=== PATIENT | male | born 1965 | race Caucasian/White ===

== ENCOUNTER 2023-05-31 13:20 | Outpatient (REF) | payer MEDICAID, SELFPAY ==
[2023-05-31 14:35] LABS: MANUAL DIFF FLAG NO
[2023-05-31 15:01] LABS: Basophils Absolute Auto 0.1 X10*3/uL (0.0-0.2); Basophils Percent Auto 1.5 % (0-2); Eosinophils Absolute Auto 0.9 X10*3/uL (0.0-0.4); Hematocrit 45.5 % (42.0-52.0); Hemoglobin 15.4 g/dl (14.0-18.0); Imm Gran Abs Auto 0.03 X10*3/uL (0.00-0.03); Imm Gran Pct Auto 0.4 % (0.0-0.4); Lymphocytes Percent Auto 25.4 % (20-40); Mean Corpuscular HGB Conc 33.8 g/dl (31.0-36.0); Mean Corpuscular Hemoglobin 29.3 pg (27.0-33.0); Mean Corpuscular Volume 86.5 fL (80.0-98.0); Mean Platelet Volume 10.7 fL (9.4-12.4); Monocytes Absolute Auto 0.6 X10*3/uL (0.1-1.2); Monocytes Percent Auto 7.3 % (2-11); Neutrophils Absolute Auto 4.3 x10*3/uL (2.0-8.3); Neutrophils Percent Auto 54.4 % (45-73); Platelet Count 213 X10*3/uL (160-400); Red Blood Count 5.26 X10*6/uL (4.60-5.80); Red Cell Distribution Width 13.3 % (11.0-16.0); White Blood Count 7.9 X10*3/uL (4.8-10.8)
[2023-05-31 15:23] LABS: Anion Gap 11 (12-20); Blood Urea Nitrogen 12 mg/dL (9-16); Calcium 9.6 mg/dL (8.4-10.2); Carbon Dioxide 28 mmol/L (22-29); Chloride 111 mmol/L (96-108); Estimated Glomerular Filt Rate > 60; Glucose Random 153 mg/dL (60-115); Potassium 3.8 mmol/L (3.3-5.1); Sodium 146 mmol/L (135-145)
[2023-05-31 16:26] LABS: Erythrocyte Sedimentation Rate 5 MM/HR (0-15)
[2023-06-01 16:34] LABS: IgA 278 mg/dL (47-310); IgG 686 mg/dL (600-1640); IgM 149 mg/dL (50-300)
[2023-06-05 08:35] LABS: Class Alternaria alternata 0; Class Aspergillus fumigatus 0; Class Bermuda Grass 0; Class Birch 0; Class Cat Dander 0; Class Cladosporium herbarum 0; Class Cockroach 0; Class Common Ragweed 0; Class Cottonwood 0; Class Derm. pterony 0; Class Dermatophagoides farinae 0; Class Dog Dander 0; Class Elm 0; Class Maple Box Elder 0; Class Mountain Cedar 0; Class Mouse Urine Protein 0; Class Mugwort 0; Class Oak 0; Class Penicillium crysogenum 0; Class Rough Pigweed 0; Class Sheep Sorrel 0; Class Sycamore 0; Class Timothy Grass 0; Class Walnut Tree 0; Class White Ash 0; Class White Mulberry 0; D001 IgE D pteronyssinus <0.10 kU/L; D002 - IgE D farinae <0.10 kU/L; E001 - IgE Cat Dander <0.10 kU/L; E005 - IgE Dog Dander <0.10 kU/L; E072-IgE Mouse Urine <0.10 kU/L; G002 IgE Bermuda Grass <0.10 kU/L; G006 - IgE Timothy Grass <0.10 kU/L; I006-IgE Cockroach, German <0.10 kU/L; Immunoglobulin E 27 kU/L (<OR=114); M001 IgE Penicillium chrysogen <0.10 kU/L; M002 - IgE Cladosporium herbar <0.10 kU/L; M003 - IgE Aspergillus fumigat <0.10 kU/L; M006 - IgE Alternaria alternat <0.10 kU/L; T001 IgE Maple/Box Elder <0.10 kU/L; T003 IgE Common Silver Birch <0.10 kU/L; T006 - IgE Cedar, Mountain <0.10 kU/L; T007 - IgE Oak, White <0.10 kU/L; T008 IgE Elm, American <0.10 kU/L; T010 - IgE Walnut <0.10 kU/L; T011 - IgE Maple Leaf Sycamore <0.10 kU/L; T014 - IgE Cottonwood <0.10 kU/L; T015 - IgE Ash, White <0.10 kU/L; T070 - IgE White Mulberry <0.10 kU/L; W001 - IgE Ragweed, Short <0.10 kU/L; W006 - IgE Mugwort <0.10 kU/L; W014 IgE Pigweed, Common <0.10 kU/L; W018 IgE Sheep Sorrel <0.10 kU/L
[2023-06-06 14:58] LABS: Asperg fumigatus Precip Abs NEGATIVE (NEGATIVE); Micropoly faeni Abs NEGATIVE (NEGATIVE); Pigeon serum Abs NEGATIVE (NEGATIVE); Saccharo pora viridis Abs NEGATIVE (NEGATIVE); Thermo candidus Abs NEGATIVE (NEGATIVE); Thermoa vulgaris #1 NEGATIVE (NEGATIVE)
== END 2023-05-31 13:21 | disposition home or self-care (01) ==
LOC: HO.LAB 13:20
PROVIDERS: PCP Physician Assistant; Visit Provider Hospitalist
DX: J45.51 Severe persistent asthma with (acute) exacerbation (principal); R91.1 Solitary pulmonary nodule; T78.40XA Allergy, unspecified, initial encounter; D72.18 Eosinophilia in diseases classified elsewhere; D72.10 Eosinophilia, unspecified
CPT/HCPCS: 36415; 80048; 82784; 82785; 85025; 85652; 86003; 86331; 86606; 86609; 99202

== ENCOUNTER 2023-05-31 13:20 | Outpatient (AMB) | payer MEDICAID, SELFPAY ==
--- NOTE | 2023-05-31 13:29 | MHC.OFFVIS ---
Intake Vital Signs 05/31/23 13:30 Height 5 ft 7 in Weight 178 lb BMI 27.9 BP 128/70 Blood Pressure Location Lt brachial Position Sitting Pulse 63 Pulse Source Pulse Oximeter Pulse Oximetry (%) 97 Oxygen Delivery Method Room Air Intake Visit Reasons: COPD Allergies lisinopril Allergy (Severe, Verified 05/31/23 13:33) Swelling HPI HPI Comments History of Present Illness Details The patient is here for pulmonary evaluation frequent asthma exacerbations and bronchitis.. The patient is a 57-year-old gentleman with diabetes in addition to a history of spontaneous pneumothoraces secondary to blebs status post bilateral pleurodesis. Apparently he has had worsening respiratory symptoms in the last few months. He has had multiple evaluations and ER visits both at [facility] and also at [facility]. At [facility] he does participate also under lung cancer screening program. Back in April he was evaluated with significant chest pain shortness of breath and cough. Did have a CTA to rule out aortic dissection. Ultimately I did evaluate his lungs. He does have some subpleural blebs and also emphysema. In addition to that evidence of significant bronchitis bilaterally. The patient also has the post pleurodesis and postoperative changes. He also had blood work the demonstrating significant eosinophilia. The patient has been maintained on both QVAR and also Stiolto. The patient also uses his rescue medication several times a day. He continues have significant coughing and wheezing. He recently stopped his prednisone taper. He is feeling better overall though on examination he is still having significant wheezing. As far as exposures the patient denies any mold in the home. He denies any animal or bird exposures. He has not had allergy testing however. I do believe he has a significant bout of allergic asthmatic bronchitis. He has significant eosinophilia. Therefore based on the fact that he is already maximized on his respiratory inhaler therapy in the fact that he is required multiple prednisone tapers almost on a monthly basis that the patient would benefit from biologic therapy. [facility] Medical History (Updated 05/31/23 @ 20:04 by Easton Ruby MD) Eosinophilia Allergies Pulmonary nodule Asthma Social History (Updated 05/31/23 @ 13:39 by VERITO Muñoz) Patient Tobacco Use Status: Former Tobacco user Tobacco use type: Cigarette Years Smoked: 20+ Years Review of Systems Const Denies fever(s) Eyes Reports no additional complaints ENT Reports nasal congestion and Reports nasal discharge Card Denies chest pain and Reports dyspnea on exertion Resp Reports cough, Reports dyspnea on exertion and Reports wheezing GI Reports no additional complaints Musc Reports no additional complaints Skin/Breast Denies rash Neuro Reports no additional complaints Endo Reports as per HPI Klever/Lymph Denies lymphadenopathy Aller/Immun Reports wheezing Physical Exam Vital Signs: Last Vital Signs Pulse 63 05/31/23 13:30 BP 128/70 05/31/23 13:30 Pulse Ox 97 05/31/23 13:30 Oxygen Delivery Method Room Air 05/31/23 13:30 BMI result Body Mass Index 27.9 Const General: comfortable HEENT Head: Yes normocephalic Neck Neck: Yes supple Chest Chest palpation & inspection: normal inspection of the chest Resp Effort & Inspection: normal respiratory effort and prolonged expiratory phase Auscultation: wheezes Cardio Heart sounds: S1 normal heart sound present and S2 normal heart sound present GI Palpation (GI): Soft to palpation Skin General skin exam: no rashes or lesions noted Extrem General: Yes no clubbing, cyanosis or edema Assessment & Plan Assessment & Plan (1) Asthma: Code(s): J45.909 - Unspecified asthma, uncomplicated Qualifiers: Asthma severity: severe Asthma persistence: persistent Asthma complication type: uncomplicated Qualified Code(s): J45.50 - Severe persistent asthma, uncomplicated (2) Pulmonary nodule: Code(s): R91.1 - Solitary pulmonary nodule (3) Allergies: Code(s): T78.40XA - Allergy, unspecified, initial encounter Qualifiers: Encounter type: initial encounter Qualified Code(s): T78.40XA - Allergy, unspecified, initial encounter (4) Eosinophilia: Code(s): D72.10 - Eosinophilia, unspecified Qualifiers: Eosinophilia type: in diseases classified elsewhere Qualified Code(s): D72.18 - Eosinophilia in diseases classified elsewhere Plan continue Stiolto start QVAR STEFANO as needed Will send prednisone taper if worsens, but he is aware the prednisone will worsen his diabetes Will benefit from Biologic therapy: Awaiting IgE levels. Will likely start Fasenra (if IgE is elevated could also consider Dupixent) PFTs when more stable F/U 4 weeks Orders: Orders Resp Allergy Profile Region I Today D72.10 - Eosinophilia, unspecified, J45.909 - Unspecified asthma, uncomplicated, R91.1 - Solitary pulmonary nodule, T78.40XA - Allergy, unspecified, initial encounter Immunoglobulins,IgG IgA IgM Today D72.10 - Eosinophilia, unspecified, J45.909 - Unspecified asthma, uncomplicated, R91.1 - Solitary pulmonary nodule, T78.40XA - Allergy, unspecified, initial encounter Complete Blood Count Auto Diff Today D72.10 - Eosinophilia, unspecified, J45.909 - Unspecified asthma, uncomplicated, R91.1 - Solitary pulmonary nodule, T78.40XA - Allergy, unspecified, initial encounter Basic Metabolic Panel Today D72.10 - Eosinophilia, unspecified, J45.909 - Unspecified asthma, uncomplicated, R91.1 - Solitary pulmonary nodule, T78.40XA - Allergy, unspecified, initial encounter Erythrocyte Sedimentation Rate Today D72.10 - Eosinophilia, unspecified, J45.909 - Unspecified asthma, uncomplicated, R91.1 - Solitary pulmonary nodule, T78.40XA - Allergy, unspecified, initial encounter Immunoglobulin E Today D72.10 - Eosinophilia, unspecified, J45.909 - Unspecified asthma, uncomplicated, R91.1 - Solitary pulmonary nodule, T78.40XA - Allergy, unspecified, initial encounter Hypersensitive Pneumonitis Prf Today D72.10 - Eosinophilia, unspecified, J45.909 - Unspecified asthma, uncomplicated, R91.1 - Solitary pulmonary nodule, R91.8 - Other nonspecific abnormal finding of lung field, T78.40XA - Allergy, unspecified, initial encounter Medications: New montelukast (Singulair) 10 mg PO BEDTIME 30 days 30 tabs 11RF J45.909 - Unspecified asthma, uncomplicated Coding Level of Care Code New Pt Level 4 (55194) Diagnoses Severe persistent asthma without complication J45.50 Asthma severity: severe Asthma persistence: persistent Asthma complication type: uncomplicated Pulmonary nodule R91.1 Allergy, initial encounter T78.40XA Encounter type: initial encounter Eosinophilia in diseases classified elsewhere D72.18 Eosinophilia type: in diseases classified elsewhere Time Spent (min) 40
[2023-05-31 13:30] VITALS: BP 128/70; PULSE 63; O2SAT 97; BMI 27.9
== END 2023-05-31 14:12 | disposition home or self-care (01) ==
PROVIDERS: PCP Physician Assistant; Visit Provider Hospitalist
DX: J45.50 Severe persistent asthma, uncomplicated (principal); R91.1 Solitary pulmonary nodule; T78.40XA Allergy, unspecified, initial encounter; D72.18 Eosinophilia in diseases classified elsewhere
CPT/HCPCS: 99204

== ENCOUNTER 2023-09-10 15:19 | Outpatient (AMB) | payer MEDICAID, SELFPAY ==
[2023-09-10 15:26] VITALS: BP 138/90; PULSE 83; RESP 18; O2SAT 96; BMI 32.9
--- NOTE | 2023-09-10 15:26 | A.OFFVIS_ITS ---
Vital Signs 09/10/23 15:26 Height 5 ft 7 in Weight 210 lb BMI 32.9 BP 138/90 H Blood Pressure Location Lt brachial Position Sitting Respiration 18 Pulse 83 Pulse Source Pulse Oximeter Pulse Oximetry (%) 96 Oxygen Delivery Method Room Air Intake Visit Reasons: COPD Allergies lisinopril Allergy (Severe, Verified 09/10/23 15:24) Swelling HPI Comments Details: The patient is a 57-year-old gentleman with diabetes in addition to a history of spontaneous pneumothoraces secondary to blebs status post bilateral pleurodesis. Apparently he has had worsening respiratory symptoms in the last few months. He has had multiple evaluations and ER visits both at [facility] and also at [facility]. At [facility] he does participate also under lung cancer screening program. Back in April he was evaluated with significant chest pain shortness of breath and cough. Did have a CTA to rule out aortic dissection. Ultimately I did evaluate his lungs. He does have some subpleural blebs and also emphysema. In addition to that evidence of significant bronchitis bilaterally. The patient also has the post pleurodesis and postoperative changes. He also had blood work the demonstrating significant eosinophilia. The patient has been maintained on both QVAR and also Stiolto. The patient also uses his rescue medication several times a day. He continues have significant coughing and wheezing. He recently stopped his prednisone taper. He is feeling better overall though on examination he is still having significant wheezing. As far as exposures the patient denies any mold in the home. He denies any animal or bird exposures. He has not had allergy testing however. I do believe he has a significant bout of allergic asthmatic bronchitis. He has significant eosinophilia. Therefore based on the fact that he is already maximized on his respiratory inhaler therapy in the fact that he is required multiple prednisone tapers almost on a monthly basis that the patient would benefit from biologic therapy. 09/10/2023 the patient is here for a pulmonary follow-up visit. Overall he is feeling better. The QVAR inhaler has been affecting beneficial. He also has a Stiolto although he has not been using it. He does take his nebulizer to working does use it once a day or so. Overall he has been feeling better. Unfortunately went back to smoking the last 2 weeks. He understands he does not have a lot a leeway with smoking and she quit all together at this time. The patient will call if he needs help with nicotine supplementation. In the meantime he did have blood work including significant eosinophilia. The patient did not have any significant allergens noted on the allergy testing. In addition to that his IgE level was normal. 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 The patient seems to be responding well to the QVAR inhaler and we will continue the current therapy at this time. I do believe he should restart Stiolto though. Meantime though if the patient has any worsening symptoms then I do believe that would be a great candidate for I will 5 inhibitors. PFSH Medical History (Updated 05/31/23 @ 20:04 by Easton Ruby MD) Eosinophilia Allergies Pulmonary nodule Asthma Social History (Updated 05/31/23 @ 13:39 by VERITO Muñoz) Patient Tobacco Use Status: Former Tobacco user Tobacco use type: Cigarette Years Smoked: 20+ Years Review of Systems Const Denies fever(s) Eyes Reports no additional complaints ENT Reports nasal congestion and Reports nasal discharge Card Denies chest pain and Reports dyspnea on exertion Resp Reports cough, Reports dyspnea on exertion and Reports wheezing GI Reports no additional complaints Musc Reports no additional complaints Skin/Breast Denies rash Neuro Reports no additional complaints Endo Reports as per HPI Klever/Lymph Denies lymphadenopathy Aller/Immun Reports wheezing Physical Exam Vital Signs: Last Vital Signs Pulse 83 09/10/23 15:26 Resp 18 09/10/23 15:26 BP 138/90 H 09/10/23 15:26 Pulse Ox 96 09/10/23 15:26 Oxygen Delivery Method Room Air 09/10/23 15:26 BMI result Body Mass Index 32.9 Const General: comfortable HEENT Head: Yes normocephalic Neck Neck: Yes supple Chest Chest palpation & inspection: normal inspection of the chest Resp Effort & Inspection: normal respiratory effort and No prolonged expiratory phase Auscultation: no wheezes and diminished lung sounds Cardio Heart sounds: S1 normal heart sound present and S2 normal heart sound present GI Palpation (GI): Soft to palpation Skin General skin exam: no rashes or lesions noted Extrem General: Yes no clubbing, cyanosis or edema Assessment & Plan Assessment & Plan (1) Asthma: Code(s): J45.909 - Unspecified asthma, uncomplicated Category: Medical Qualifiers: Asthma complication type: uncomplicated Asthma persistence: persistent Asthma severity: severe Qualified Code(s): J45.50 - Severe persistent asthma, uncomplicated (2) Pulmonary nodule: Code(s): R91.1 - Solitary pulmonary nodule Category: Medical (3) Allergies: Code(s): T78.40XA - Allergy, unspecified, initial encounter Category: Medical Qualifiers: Encounter type: initial encounter Qualified Code(s): T78.40XA - Allergy, unspecified, initial encounter (4) Eosinophilia: Code(s): D72.10 - Eosinophilia, unspecified Category: Medical Qualifiers: Eosinophilia type: in diseases classified elsewhere Qualified Code(s): D72.18 - Eosinophilia in diseases classified elsewhere Plan continue Stiolto continue QVAR STEFANO as needed Will benefit from Biologic therapy: Awaiting IgE levels. Will likely start Fasenra PFTs F/U 4-6 months Orders: Orders PFT pulmonary function test 4 Months J45.50 - Severe persistent asthma, uncomplicated Coding Level of Care Code Est Pt Level 4 (09630) Diagnoses Severe persistent asthma without complication J45.50 Asthma complication type: uncomplicated Asthma persistence: persistent Asthma severity: severe Pulmonary nodule R91.1 Allergy, initial encounter T78.40XA Encounter type: initial encounter Eosinophilia in diseases classified elsewhere D72.18 Eosinophilia type: in diseases classified elsewhere Time Spent (min) 17
== END 2023-09-10 15:43 | disposition home or self-care (01) ==
PROVIDERS: PCP Physician Assistant; Visit Provider Hospitalist
DX: J45.50 Severe persistent asthma, uncomplicated (principal); R91.1 Solitary pulmonary nodule; T78.40XA Allergy, unspecified, initial encounter; D72.18 Eosinophilia in diseases classified elsewhere
CPT/HCPCS: 99214

== ENCOUNTER → 2023-09-10 15:19 | Outpatient (BNVA) | payer MEDICAID, SELFPAY | PROVIDERS: PCP Physician Assistant; Visit Provider Hospitalist | DX: J44.9 Chronic obstructive pulmonary disease, unspecified (principal); J45.50 Severe persistent asthma, uncomplicated; R91.1 Solitary pulmonary nodule; T78.40XA Allergy, unspecified, initial encounter; D72.18 Eosinophilia in diseases classified elsewhere; X58.XXXA Exposure to other specified factors, initial encounter; Y93.9 Activity, unspecified; Y92.9 Unspecified place or not applicable; Y99.9 Unspecified external cause status; Z87.891 Personal history of nicotine dependence; Z79.899 Other long term (current) drug therapy | CPT/HCPCS: 99212 ==

== ENCOUNTER 2024-01-05 | Outpatient (REF) | payer MEDICAID, SELFPAY ==
--- NOTE | 2024-01-05 13:30 | PFT_ITS ---
Flows: FEV1: 62 % of predicted at 2.01 L FVC: 89 % of predicted at 3.71 L FEV1/FVC: 54% Bronchodilator response: Present in small to medium airways only Volumes: Total lung capacity: 79 % of predicted at 5.16 L Residual volume: 85 % of predicted at 1.70 L Slow vital capacity: 76 % of predicted at 3.46 L Expiratory reserve volume: 96 % of predicted at 1.10 L Diffusion capacity: Mildly decreased, corrects to normal after adjustment for alveolar ventilation. Impression: Moderate obstructive ventilatory defect with bronchodilator response in small to medium airways only. Decreased diffusion capacity suggests emphysema. MTDD
== END 2024-01-05 00:01 | disposition home or self-care (01) ==
LOC: HO.RESP
PROVIDERS: PCP Physician Assistant; Visit Provider Hospitalist
DX: J45.50 Severe persistent asthma, uncomplicated (principal)
CPT/HCPCS: 94010; 94640; 94727; 94729

== ENCOUNTER 2024-03-14 15:20 | Outpatient (AMB) | payer MEDICAID, SELFPAY ==
[2024-03-14 15:26] VITALS: BP 130/80; PULSE 71; O2SAT 95; BMI 29.0
--- NOTE | 2024-03-14 15:26 | MHC.OFFVIS ---
Vital Signs 03/14/24 15:26 Height 5 ft 7 in Weight 185 lb 3.013 oz BMI 29.0 BP 130/80 Blood Pressure Location Lt brachial Position Sitting Pulse 71 Pulse Source Pulse Oximeter Pulse Oximetry (%) 95 Oxygen Delivery Method Room Air Intake Visit Reasons: COPD System Administration Manager Required: No Allergies lisinopril Allergy (Severe, Verified 03/14/24 15:30) Swelling HPI Comments Details: The patient is a 58-year-old gentleman with diabetes in addition to a history of spontaneous pneumothoraces secondary to blebs status post bilateral pleurodesis. Apparently he has had worsening respiratory symptoms in the last few months. He has had multiple evaluations and ER visits both at [facility] and also at [facility]. At [facility] he does participate also under lung cancer screening program. Back in April he was evaluated with significant chest pain shortness of breath and cough. Did have a CTA to rule out aortic dissection. Ultimately I did evaluate his lungs. He does have some subpleural blebs and also emphysema. In addition to that evidence of significant bronchitis bilaterally. The patient also has the post pleurodesis and postoperative changes. He also had blood work the demonstrating significant eosinophilia. The patient has been maintained on both QVAR and also Stiolto. The patient also uses his rescue medication several times a day. He continues have significant coughing and wheezing. He recently stopped his prednisone taper. He is feeling better overall though on examination he is still having significant wheezing. As far as exposures the patient denies any mold in the home. He denies any animal or bird exposures. He has not had allergy testing however. I do believe he has a significant bout of allergic asthmatic bronchitis. He has significant eosinophilia. Therefore based on the fact that he is already maximized on his respiratory inhaler therapy in the fact that he is required multiple prednisone tapers almost on a monthly basis that the patient would benefit from biologic therapy. 09/10/2023 the patient is here for a pulmonary follow-up visit. Overall he is feeling better. The QVAR inhaler has been affecting beneficial. He also has a Stiolto although he has not been using it. He does take his nebulizer to working does use it once a day or so. Overall he has been feeling better. Unfortunately went back to smoking the last 2 weeks. He understands he does not have a lot a leeway with smoking and she quit all together at this time. The patient will call if he needs help with nicotine supplementation. In the meantime he did have blood work including significant eosinophilia. The patient did not have any significant allergens noted on the allergy testing. In addition to that his IgE level was normal. 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 The patient seems to be responding well to the QVAR inhaler and we will continue the current therapy at this time. I do believe he should restart Stiolto though. Meantime though if the patient has any worsening symptoms then I do believe that would be a great candidate for I will 5 inhibitors. 03/14/2024 the patient is here for a pulmonary follow-up visit. Overall the patient has been doing well. He continues uses Stiolto with good effect. Unfortunately he stopped using QVAR because he did not think it was helping him much. Unfortunately also continues to smoke cigarettes. He is only smoking several cigarettes a day but he understands that this is not helping his cost. Continues to have wheezing. He did undergo pulmonary function studies and we did review them together. He does have a moderate obstruction consistent with moderate COPD. 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 He also has significant eosinophilia. He benefits from the inhaled cortical steroid for that reason. He was going to go ahead and start the QVAR. He is not interested in biologic therapies at this time. The patient may also be a good candidate for pd4 inhibitors. The patient is also participating in the lung cancer screening program. Although he is not doing it here. Will request additional imaging studies once he has 1 available. The patient follow-up in 6 months. If he develops any worsening symptoms prior to that he will call for an earlier assessment. [facility] Medical History (Updated 03/16/24 @ 19:48 by Easton Ruby MD) Asthma-COPD overlap syndrome Eosinophilia Allergies Pulmonary nodule Asthma Social History Patient Tobacco Use Status: Former Tobacco user Tobacco use type: Cigarette Years Smoked: 20+ Years Review of Systems Const Denies fever(s) Eyes Reports no additional complaints ENT Reports nasal congestion and Reports nasal discharge Card Denies chest pain and Reports dyspnea on exertion Resp Reports cough, Reports dyspnea on exertion and Reports wheezing GI Reports no additional complaints Musc Reports no additional complaints Skin/Breast Denies rash Neuro Reports no additional complaints Endo Reports as per HPI Klever/Lymph Denies lymphadenopathy Aller/Immun Reports wheezing Physical Exam Vital Signs: Last Vital Signs Pulse 71 03/14/24 15:26 BP 130/80 03/14/24 15:26 Pulse Ox 95 03/14/24 15:26 Oxygen Delivery Method Room Air 03/14/24 15:26 BMI result Body Mass Index 29.0 Const General: comfortable HEENT Head: Yes normocephalic Neck Neck: Yes supple Chest Chest palpation & inspection: normal inspection of the chest Resp Effort & Inspection: normal respiratory effort and No prolonged expiratory phase Auscultation: no wheezes and diminished lung sounds Cardio Heart sounds: S1 normal heart sound present and S2 normal heart sound present GI Palpation (GI): Soft to palpation Skin General skin exam: no rashes or lesions noted Extrem General: Yes no clubbing, cyanosis or edema Assessment & Plan Assessment & Plan (1) Asthma: Code(s): J45.909 - Unspecified asthma, uncomplicated Category: Medical Qualifiers: Asthma complication type: uncomplicated Asthma persistence: persistent Asthma severity: severe Qualified Code(s): J45.50 - Severe persistent asthma, uncomplicated (2) Pulmonary nodule: Code(s): R91.1 - Solitary pulmonary nodule Category: Medical (3) Allergies: Code(s): T78.40XA - Allergy, unspecified, initial encounter Category: Medical Qualifiers: Encounter type: initial encounter Qualified Code(s): T78.40XA - Allergy, unspecified, initial encounter (4) Eosinophilia: Code(s): D72.10 - Eosinophilia, unspecified Category: Medical Qualifiers: Eosinophilia type: in diseases classified elsewhere Qualified Code(s): D72.18 - Eosinophilia in diseases classified elsewhere (5) Asthma-COPD overlap syndrome: Code(s): J44.89 - Other specified chronic obstructive pulmonary disease Category: Medical Plan continue Stiolto start QVAR STEFANO as needed Will benefit from Biologic therapy if no better. Pt is reluctant at this time LDCT, need to get report F/U 6 months Medications: New beclomethasone dipropionate 80 mcg/actuation (Qvar RediHaler) 1 inh inhalation BID 30 days 10.6 grams 11RF Coding Level of Care Code Est Pt Level 4 (19926) Diagnoses Severe persistent asthma without complication J45.50 Asthma complication type: uncomplicated Asthma persistence: persistent Asthma severity: severe Pulmonary nodule R91.1 Allergy, initial encounter T78.40XA Encounter type: initial encounter Eosinophilia in diseases classified elsewhere D72.18 Eosinophilia type: in diseases classified elsewhere Asthma-COPD overlap syndrome J44.89 Time Spent (min) 17
== END 2024-03-14 16:08 | disposition home or self-care (01) ==
LOC: HO.HPS 15:21
PROVIDERS: PCP Physician Assistant; Visit Provider Hospitalist
DX: J45.50 Severe persistent asthma, uncomplicated (principal); R91.1 Solitary pulmonary nodule; T78.40XA Allergy, unspecified, initial encounter; D72.18 Eosinophilia in diseases classified elsewhere; J44.89 Other specified chronic obstructive pulmonary disease
CPT/HCPCS: 99214

== ENCOUNTER → 2024-03-14 15:20 | Outpatient (BNVA) | payer MEDICAID, SELFPAY | PROVIDERS: PCP Physician Assistant; Visit Provider Hospitalist | DX: J45.50 Severe persistent asthma, uncomplicated (principal); J44.89 Other specified chronic obstructive pulmonary disease; D72.18 Eosinophilia in diseases classified elsewhere; R91.1 Solitary pulmonary nodule; T78.40XA Allergy, unspecified, initial encounter; F17.210 Nicotine dependence, cigarettes, uncomplicated | CPT/HCPCS: 99212 ==

== ENCOUNTER 2024-12-12 14:45 | Outpatient (AMB) | payer MEDICAID, SELFPAY ==
--- OUTSIDE RECORDS SUMMARY | 2024-12-12 14:47 | XMS_ITS ---
[facility] Encounters Encounter Type Encounter Reason Primary Diagnosis Location Date Ambulatory [facility] 11/20/2024 Care Team Organization Name Specialty Phone Email Start Date End Da te [facility] 11/20
--- NOTE | 2024-12-12 14:50 | A.OFFVIS_ITS ---
Vital Signs 12/12/24 14:51 Height 5 ft 7 in Weight 167 lb 8.821 oz BMI 26.2 BP 160/82 H Blood Pressure Location Lt brachial Position Sitting Pulse 77 Pulse Source Pulse Oximeter Pulse Oximetry (%) 96 Oxygen Delivery Method Room Air Intake Visit Reasons: copd Forest[employer] Required: No Accompanied by: Self / Same As Patient Allergies lisinopril Allergy (Severe, Verified 12/12/24 14:54) Swelling HPI Comments Details: The patient is a 59-year-old gentleman with diabetes in addition to a history of spontaneous pneumothoraces secondary to blebs status post bilateral pleurodesis. Apparently he has had worsening respiratory symptoms in the last few months. He has had multiple evaluations and ER visits both at [facility] and also at [facility]. At [facility] he does participate also under lung cancer screening program. Back in April he was evaluated with significant chest pain shortness of breath and cough. Did have a CTA to rule out aortic dissection. Ultimately I did evaluate his lungs. He does have some subpleural blebs and also emphysema. In addition to that evidence of significant bronchitis bilaterally. The patient also has the post pleurodesis and postoperative changes. He also had blood work the demonstrating significant eosinophilia. The patient has been maintained on both QVAR and also Stiolto. The patient also uses his rescue medication several times a day. He continues have significant coughing and wheezing. He recently stopped his prednisone taper. He is feeling better overall though on examination he is still having significant wheezing. As far as exposures the patient denies any mold in the home. He denies any animal or bird exposures. He has not had allergy testing however. I do believe he has a significant bout of allergic asthmatic bronchitis. He has significant eosinophilia. Therefore based on the fact that he is already maximized on his respiratory inhaler therapy in the fact that he is required multiple prednisone tapers almost on a monthly basis that the patient would benefit from biologic therapy. 09/10/2023 the patient is here for a pulmonary follow-up visit. Overall he is feeling better. The QVAR inhaler has been affecting beneficial. He also has a Stiolto although he has not been using it. He does take his nebulizer to working does use it once a day or so. Overall he has been feeling better. Unfortunately went back to smoking the last 2 weeks. He understands he does not have a lot a leeway with smoking and she quit all together at this time. The patient will call if he needs help with nicotine supplementation. In the meantime he did have blood work including significant eosinophilia. The patient did not have any significant allergens noted on the allergy testing. In addition to that his IgE level was normal. 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 The patient seems to be responding well to the QVAR inhaler and we will continue the current therapy at this time. I do believe he should restart Stiolto though. Meantime though if the patient has any worsening symptoms then I do believe that would be a great candidate for I will 5 inhibitors. 03/14/2024 the patient is here for a pulmonary follow-up visit. Overall the pa tre has been doing well. He continues uses Stiolto with good effect. Unfortunately he stopped using QVAR because he did not think it was helping him much. Unfortunately also continues to smoke cigarettes. He is only smoking several cigarettes a day but he understands that this is not helping his cost. Continues to have wheezing. He did undergo pulmonary function studies and we did review them together. He does have a moderate obstruction consistent with moderate COPD. 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 He also has significant eosinophilia. He benefits from the inhaled cortical steroid for that reason. He was going to go ahead and start the QVAR. He is not interested in biologic therapies at this time. The patient may also be a good candidate for pd4 inhibitors. The patient is also participating in the lung cancer screening program. Although he is not doing it here. Will request additional imaging studies once he has 1 available. The patient follow-up in 6 months. If he develops any worsening symptoms prior to that he will call for an earlier assessment. 12/12/2024 the patient is here for pulmonary follow-up visit. The patient overall has been doing well. He continues on the Stiolto and also the QVAR. They have been affecting beneficial. He does have significant eosinophilia suggesting eosinophilic asthma. Unfortunately continues to smoke cigarettes. He is willing to cut down. He is going to have to have a hip replacement done soon. He understands he will probably have to quit smoking prior to having that surgery anyway. The patient is also participating in the lung cancer screening program. I believe at [facility]. He should be kept another CAT scan in a couple months at least. If he does not he can always call and I can have him do it here. We did review his last CT scan from December 2023 demonstrating some stable pulmonary nodules which is reassuring although he has evidence of chronic bronchitis from his airway disease. He has also some minimal emphysema. Will follow-up in a year's time if he has any issues prior to this he will call for an earlier assessment. [facility] Medical History (Updated 03/16/24 @ 19:48 by Easton Ruby MD) Asthma-COPD overlap syndrome Eosinophilia Allergies Pulmonary nodule Asthma Social History Patient Tobacco Use Status: Former Tobacco user Tobacco use type: Cigarette Years Smoked: 20+ Years Review of Systems Const Denies fever(s) Eyes Reports no additional complaints ENT Reports nasal congestion and Reports nasal discharge Card Denies chest pain and Reports dyspnea on exertion Resp Reports cough, Reports dyspnea on exertion and Reports wheezing GI Reports no additional complaints Musc Reports no additional complaints Skin/Breast Denies rash Neuro Reports no additional complaints Endo Reports as per HPI Klever/Lymph Denies lymphadenopathy Aller/Immun Reports wheezing Physical Exam Vital Signs: Last Vital Signs Pulse 77 12/12/24 14:51 BP 160/82 H 12/12/24 14:51 Pulse Ox 96 12/12/24 14:51 Oxygen Delivery Method Room Air 12/12/24 14:51 BMI result Body Mass Index 26.2 Const General: comfortable HEENT Head: Yes normocephalic Neck Neck: Yes supple Chest Chest palpation & inspection: normal inspection of the chest Resp Effort & Inspection: normal respiratory effort and No prolonged expiratory phase Auscultation: no wheezes and diminished lung sounds Cardio Heart sounds: S1 normal heart sound present and S2 normal heart sound present GI Palpation (GI): Soft to palpation Skin General skin exam: no rashes or lesions noted Extrem General: Yes no clubbing, cyanosis or edema Assessment & Plan Assessment & Plan (1) Asthma: Code(s): J45.909 - Unspecified asthma, uncomplicated Category: Medical Qualifiers: Asthma complication type: uncomplicated Asthma persistence: persistent Asthma severity: severe Qualified Code(s): J45.50 - Severe persistent asthma, uncomplicated (2) Pulmonary nodule: Code(s): R91.1 - Solitary pulmonary nodule Category: Medical (3) Allergies: Code(s): T78.40XA - Allergy, unspecified, initial encounter Category: Medical Qualifiers: Encounter type: initial encounter Qualified Code(s): T78.40XA - Allergy, unspecified, initial encounter (4) Eosinophilia: Code(s): D72.10 - Eosinophilia, unspecified Category: Medical Qualifiers: Eosinophilia type: in diseases classified elsewhere Qualified Code(s): D72.18 - Eosinophilia in diseases classified elsewhere (5) Asthma-COPD overlap syndrome: Code(s): J44.89 - Other specified chronic obstructive pulmonary disease Category: Medical Plan continue Stiolto continue QVAR STEFANO as needed LDCT, need to get report F/U 12 months Medications: New tiotropium-olodaterol 2.5-2.5 mcg/actuation (Stiolto Respimat) 2 puffs inhalation DAILY 4 grams 11RF Changed From albuterol sulfate 90 mcg/actuation (Ventolin HFA) inhalation To albuterol sulfate 90 mcg/actuation (Ventolin HFA) 2 inhalations inhalation Q6H PRN 8.5 grams 11RF shortness of breath or wheezing 30 days Refilled beclomethasone dipropionate 80 mcg/actuation (Qvar RediHaler) 1 inh inhalation BID 10.6 grams 11RF 30 days Coding Level of Care Code Est Pt Level 4 (75666) Diagnoses Severe persistent asthma without complication J45.50 Asthma complication type: uncomplicated Asthma persistence: persistent Asthma severity: severe Pulmonary nodule R91.1 Allergy, initial encounter T78.40XA Encounter type: initial encounter Eosinophilia in diseases classified elsewhere D72.18 Eosinophilia type: in diseases classified elsewhere Asthma-COPD overlap syndrome J44.89 Time Spent (min) 16
[2024-12-12 14:51] VITALS: BP 160/82; PULSE 77; O2SAT 96; BMI 26.2
== END 2024-12-12 15:48 | disposition home or self-care (01) ==
LOC: HO.HPS 14:45
PROVIDERS: PCP Physician Assistant; Visit Provider Hospitalist
DX: J45.50 Severe persistent asthma, uncomplicated (principal); R91.1 Solitary pulmonary nodule; T78.40XA Allergy, unspecified, initial encounter; D72.18 Eosinophilia in diseases classified elsewhere; J44.89 Other specified chronic obstructive pulmonary disease
CPT/HCPCS: 99214

== ENCOUNTER → 2024-12-12 14:45 | Outpatient (BNVA) | payer MEDICAID, SELFPAY | PROVIDERS: PCP Physician Assistant; Visit Provider Hospitalist | DX: R06.02 Shortness of breath (principal); R07.9 Chest pain, unspecified; J45.50 Severe persistent asthma, uncomplicated; R91.1 Solitary pulmonary nodule; T78.40XA Allergy, unspecified, initial encounter; D72.10 Eosinophilia, unspecified; D72.18 Eosinophilia in diseases classified elsewhere; J44.89 Other specified chronic obstructive pulmonary disease | CPT/HCPCS: 99212 ==